=== PATIENT | female | born 1945 | race Caucasian/White ===

== ENCOUNTER 2020-05-15 11:57 | Day surgery (SDC) | payer MEDICARE, SELFPAY ==
[2020-05-09 10:38] VITALS: BMI 31.9
--- NOTE | 2020-05-14 08:31 | HO.ANESPROP2 ---
Documented by User: Pastora Beba 05/14/20 08:35 HPI - Anesthesia Eval Consult details Narrative: 74yo F for Colonoscopy Afib, no anticoag PMFSH Past Medical History Medical History Atrial fibrillation Diabetes mellitus, type II Hx of cervical cancer Hyperlipidemia Lymphedema of left leg PONV (postoperative nausea and vomiting) Post-nasal drip Vocal cord nodule Surgical History Surgical History History of vocal cord polypectomy Hx of hysterectomy Social History Social History Are you a primary doggy daycare activities director to a significant other at home: No Do you presently have visiting nurse or other home services: No Smoking Status: Unknown if ever smoked Have you been hit, kicked, punched, or otherwise hurt by someone within the past year? If so, by whom?: No Advance Directives: No Advance Directives Information Provided: No Advance Directives on File: No Recently lost weight without trying: No Meds Allergies Allergy/AdvReac Type Severity Reaction Status Date / Time hydrocodone [From VICODIN] Allergy Mild Nausea and Verified 05/15/20 12:16 Vomiting Sulfa (Sulfonamide Allergy Unknown Hives Verified 05/15/20 12:16 Antibiotics) [SULFA (SULFONAMIDE ANTIBIOTICS)] Tpxuewd-Zdw-Aqo Reductase AdvReac Unknown Muscle Verified 05/15/20 12:16 Inhibitor cramps [[id number] REDUCTASE INHIBITOR] Home Medications Medication Instructions Recorded Confirmed Last Taken Type albuterol sulfate 2 puff INHALATION QID PRN 05/09/20 05/09/20 Unknown History aspirin [Aspir-81] 81 mg PO DAILY 05/09/20 05/09/20 05/08/20 History cholecalciferol (vitamin D3) 25 mcg PO DAILY 05/09/20 05/09/20 Unknown History [Vitamin D3] diltiazem HCl 180 mg PO DAILY 05/09/20 05/15/20 05/15/20 History ibuprofen 600 mg PO QID PRN 05/09/20 05/09/20 Unknown History rosuvastatin 10 mg PO DAILY 05/09/20 05/09/20 Unknown History Exam Exam Date and Time: May 14, 2020830 Height,Weight and Vital Signs: Height 5 ft 4 in Weight 84.368 kg Assessment and Plan Assessment Anesthesia Assessment: Chart Reviewed Documented by User: Sybil Cottrell 05/15/20 12:56 PMFSH Past Medical History Medical History Atrial fibrillation Diabetes mellitus, type II Hx of cervical cancer Hyperlipidemia Lymphedema of left leg PONV (postoperative nausea and vomiting) Post-nasal drip Vocal cord nodule Surgical History Surgical History History of vocal cord polypectomy Hx of hysterectomy Social History Social History Are you a primary doggy daycare activities director to a significant other at home: No Do you presently have visiting nurse or other home services: No Smoking Status: Unknown if ever smoked Have you been hit, kicked, punched, or otherwise hurt by someone within the past year? If so, by whom?: No Advance Directives: No Advance Directives Information Provided: No Advance Directives on File: No Recently lost weight without trying: No Meds Allergies Allergy/AdvReac Type Severity Reaction Status Date / Time hydrocodone [From VICODIN] Allergy Mild Nausea and Verified 05/15/20 12:16 Vomiting Sulfa (Sulfonamide Allergy Unknown Hives Verified 05/15/20 12:16 Antibiotics) [SULFA (SULFONAMIDE ANTIBIOTICS)] Lbarzud-Ble-Piz Reductase AdvReac Unknown Muscle Verified 05/15/20 12:16 Inhibitor cramps [[id number] REDUCTASE INHIBITOR] Home Medications Medication Instructions Recorded Confirmed Last Taken Type albuterol sulfate 2 puff INHALATION QID PRN 05/09/20 05/09/20 Unknown History aspirin [Aspir-81] 81 mg PO DAILY 05/09/20 05/09/20 05/08/20 History cholecalciferol (vitamin D3) 25 mcg PO DAILY 05/09/20 05/09/20 Unknown History [Vitamin D3] diltiazem HCl 180 mg PO DAILY 05/09/20 05/15/20 05/15/20 History ibuprofen 600 mg PO QID PRN 05/09/20 05/09/20 Unknown History rosuvastatin 10 mg PO DAILY 05/09/20 05/09/20 Unknown History Exam Airway Mallampati Class: II TM Dist: >3cm Neck ROM: Full Assessment and Plan Assessment Anesthesia Assessment: Anesthesia Plan Discussed and Chart Reviewed Final Anesthetic Review NPO: Yes ASA Class: II Final Preanesthetic Review: No Changes in Pt Med Stat, Meds/Allgs Chart Reviewed, Consent Obtained/Reviewed and Anes Risks/Benef Reviewed Patient Risk: Low Procedure Risk: Low Assessment/Block/Sedation in SS: Assess/Block/Sedation-SS Anesthetic Plan Anesthetic Plan: MAC: Disposition: Standard PACU
[2020-05-15 12:12] VITALS: BP 131/83; PULSE 105; RESP 18; TEMP 36.2; O2SAT 97
[2020-05-15 12:27] LABS: Glucose, Whole Blood 95 mg/dL (60-115)
[2020-05-15] MEDS: Lactated Ringers 1,000 ML 100 ML IVCONT (12:32)
--- NOTE | 2020-05-15 13:10 | MHC.SHP ---
Pre-Procedural Eval Section A The patient is an INPATIENT: No Changes since office visit: No Cold of Flu in the past 2 weeks, No New Medical Problems, No Changes in Medication and No Patient answered all questions The History & Physical has been completed within 30 days and I have reviewed it.: Yes Section B Chief Complaint: fecal abnormalities Allergies: Allergies Allergy/AdvReac Type Severity Reaction Status Date / Time hydrocodone [From VICODIN] Allergy Mild Nausea and Verified 05/15/20 12:16 Vomiting Sulfa (Sulfonamide Allergy Unknown Hives Verified 05/15/20 12:16 Antibiotics) [SULFA (SULFONAMIDE ANTIBIOTICS)] Hmrglnn-Uhw-Ohb Reductase AdvReac Unknown Muscle Verified 05/15/20 12:16 Inhibitor cramps [[id number] REDUCTASE INHIBITOR] Plan I have reviewed the history and physical and performed a pertinent physical examination on my patient. No changes have occurred unless specified.
--- NOTE | 2020-05-15 13:49 | PM.OP ---
Brief Operative Note Date of Service: 05/15/20 Pre-op diagnosis: screening Post-op diagnosis: same (colon polyps) Procedure: colonoscopy Surgeon: Maksim Laws Anesthesia: MAC Estimated blood loss (mL): 5 Pathology: other (polyps r colon, 70, 60, 15 cm) Condition: stable Disposition: PACU
[2020-05-15 13:50] VITALS: BP 140/85; PULSE 116; RESP 16; TEMP 37; O2SAT 97
[2020-05-15 14:05] VITALS: BP 142/70; PULSE 97; RESP 16; TEMP 37; O2SAT 97
--- NOTE | 2020-05-15 16:13 | OP_ITS ---
SURGEON: Maksim Laws MD INDICATIONS: Abnormal findings in stool. PREOPERATIVE DIAGNOSIS: POSTOPERATIVE DIAGNOSIS: PROCEDURE PERFORMED: Colonoscopy to the terminal ileum with biopsy and snare polypectomy. ESTIMATED BLOOD LOSS: COMPLICATIONS: ANESTHESIA: ASSISTANTS: SPECIMENS: MEDICATIONS: Monitored anesthesia care. DESCRIPTION OF PROCEDURE: History and physical performed. The risks and benefits of the procedure were explained to the patient. Informed consent was obtained. The patient was placed in left lateral decubitus position. A digital rectal exam was performed and was found to be normal. The Olympus pediatric video colonoscope was introduced into the rectum and advanced to the cecum without difficulty. The cecum was identified by transillumination, palpation, and identification of ileocecal valve. Examination was performed and the scope was removed. She tolerated the procedure well and was taken to recovery area in stable condition. FINDINGS: The terminal ileum was normal. Visualized colonic mucosa was normal. The quality of the prep was good. There were multiple polyps. The largest measured 12 mm and was removed with a snare, this located at 15 cm. Three other polyps were less than 10 mm and removed with a combination of snare and biopsy forceps. These were located in the right colon, 70 cm and 60 cm. Retroflexed examination showed small internal hemorrhoids. IMPRESSION: Colon polyps. RECOMMENDATION: Follow up the biopsy results. MD DORY Valdez/RAKANL / [id number]
== END 2020-05-15 14:29 | disposition home or self-care (01) ==
PROVIDERS: PCP Internal Medicine; Visit Provider Internal Medicine Gastroenterology
PROC: 0DJD8ZZ Inspection of Lower Intestinal Tract, Via Natural or Artificial Opening Endoscopic (ICD-10-PCS; CPT 45378; principal; 2020-05-15 13:00)
DX: R19.5 Other fecal abnormalities (principal); D12.2 Benign neoplasm of ascending colon; D12.4 Benign neoplasm of descending colon; D12.7 Benign neoplasm of rectosigmoid junction; K64.8 Other hemorrhoids; I48.91 Unspecified atrial fibrillation; Z79.01 Long term (current) use of anticoagulants; E11.9 Type 2 diabetes mellitus without complications; E78.5 Hyperlipidemia, unspecified; I89.0 Lymphedema, not elsewhere classified; Z85.41 Personal history of malignant neoplasm of cervix uteri; Z79.899 Other long term (current) drug therapy; Z79.82 Long term (current) use of aspirin; Z88.8 Allergy status to other drugs, medicaments and biological substances
CPT/HCPCS: 45385; 45380; 82947; 88305